=== PATIENT | male | born 1975 | race Caucasian/White ===

== ENCOUNTER → 2023-09-05 14:50 | Outpatient (REF) | payer OTHER, SELFPAY | LOC: PAVMRI 14:50 | PROVIDERS: ATTENDING PHYSICIAN Physician Assistant; FAMILY PHYSICIAN Internal Medicine | DX: M54.12 Radiculopathy, cervical region (principal) | CPT/HCPCS: 72141 ==

== ENCOUNTER → 2023-09-28 | Outpatient (REF) | payer OTHER, SELFPAY | LOC: DHSLP | PROVIDERS: ATTENDING PHYSICIAN Internal Medicine; FAMILY PHYSICIAN Internal Medicine | DX: G47.30 Sleep apnea, unspecified (principal); G47.61 Periodic limb movement disorder; R06.83 Snoring | CPT/HCPCS: 95810 ==

== ENCOUNTER → 2024-05-27 07:27 | Outpatient (REF) | payer OTHER, SELFPAY | LOC: MRI 3T 07:27 | PROVIDERS: ATTENDING PHYSICIAN Physician Assistant; FAMILY PHYSICIAN Internal Medicine | DX: M54.16 Radiculopathy, lumbar region (principal) | CPT/HCPCS: 72148 ==